=== PATIENT | male | born 2000 | race African-American/Black ===

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

== ENCOUNTER 2018-08-04 12:13 | Emergency (ER) | payer BC ==
[2018-08-04] MEDS ORDERED: Ketorolac 60 MG/2 ML SDV IM ONE (12:22)
[2018-08-04 13:07] LABS: CHLORIDE,CL 104 mmol/L (98-107); SODIUM,NA 140 mmol/L (136-148)
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
== END 2018-08-04 14:03 | disposition home or self-care (01) ==
LOC: MW.ED 12:13
DX: S29.9XXA Unspecified injury of thorax, initial encounter (principal); R00.1 Bradycardia, unspecified; V49.9XXA Car occupant (driver) (passenger) injured in unspecified traffic accident, initial encounter
CPT/HCPCS: 36415; 71111; 80053; 84484; 85025; 93005; 96372; 99285; J1885